=== PATIENT | male | born 1990 | race Caucasian/White ===

== ENCOUNTER 2019-12-18 20:41 | Emergency (ER) | payer OTHER ==
[~2019-12-18] VITALS: Ht 182.9 cm; Wt 65.3 kg
[2019-12-18 21:49] LABS: ABSOLUTE EOSINOPHILS 0.1 thou/uL (0.0-0.7); ABSOLUTE LYMPHOCYTES 2.2 thou/uL (0.8-5.3); ABSOLUTE MONOCYTES 0.5 thou/uL (0.0-1.2); ABSOLUTE NEUTROPHILS 6.5 thou/uL (1.6-8.1); BASOPHILS 0.3 %; EOSINOPHILS 0.6 %; HEMOGLOBIN 15.3 gm/dL (14.0-18.0); LYMPHOCYTES 23.8 %; MCH 30.5 pg (26.0-34.0); MCHC 34.8 g/dL (28.0-37.0); MCV 87.6 fL (80.0-100.0); MPV 7.5 fl. (7.2-11.1); NUCLEATED RBCS 0 /100WBC; PLATELET COUNT* 284 thou/uL (150-400); POLYS 70.3 %; RBC 5.02 mil/uL (4.50-6.00); RDW-CV 12.7 % (10.5-14.5); WBC 9.2 thou/uL (4.0-11.0)
[2019-12-18 21:57] LABS: CREATININE 1.3 mg/dL (0.6-1.3); POTASSIUM 3.6 mmol/L (3.5-5.1)
[2019-12-18 22:01] LABS: ALBUMIN 4.3 g/dL (3.4-5.0); TOTAL BILIRUBIN 0.9 mg/dL (<0.1-1.0)
[2019-12-18 22:25] LABS: URINE BILIRUBIN NEGATIVE (Negative); URINE BLOOD NEGATIVE (Negative); URINE CLARITY CLEAR; URINE COLOR YELLOW; URINE GLUCOSE-RANDOM NEGATIVE (Negative); URINE KETONES NEGATIVE (Negative); URINE LEUKOCYTES-REFLEX NEGATIVE (Negative); URINE NITRITE-REFLEX NEGATIVE (Negative); URINE PROTEIN NEGATIVE (Negative); URINE SPECIFIC GRAVITY 1.025 (1.005-1.030); URINE UROBILINOGEN 0.2 E.U./dl (0.2-1.0)
[2019-12-18 22:40] LABS: AMP/METHAMP Negative (Negative); BARBITURATES Negative (Negative); BENZODIAZEPINES Negative (Negative); COCAINE Negative (Negative); METHADONE Negative (Negative); OPIATES Negative (Negative); PCP Negative (Negative); THC Negative (Negative)
[2019-12-18] MEDS ORDERED: ZOFRAN ODT4 MG DISSOLVE (23:06)
[2019-12-18] MEDS ORDERED: ATIVAN1 M1 PO (23:06)
[2019-12-18 23:19] VITALS: BP 123/71
[2019-12-19] MEDS ORDERED: PROTONIX40 MG PO (17:03)
== END 2019-12-18 23:19 | disposition home or self-care (01) ==
LOC: M.ERS 20:41
PROVIDERS: Emergency Medicine Emergency Medical Services
DX: F41.0 Panic disorder [episodic paroxysmal anxiety] (principal); R11.0 Nausea

== ENCOUNTER 2019-12-19 16:09 | Emergency (ER) | payer OTHER ==
[~2019-12-19] VITALS: Ht 182.9 cm; Wt 65.8 kg
[~2019-12-19 16:09] MED LIST: ATIVAN1 M1 PO; ZOFRAN ODT4 MG DISSOLVE
[2019-12-19] MEDS ORDERED: PROTONIX40 MG PO (17:03)
[2019-12-19 17:09] VITALS: BP 127/88
== END 2019-12-19 17:10 | disposition home or self-care (01) ==
LOC: M.ERS 16:09
DX: R10.9 Unspecified abdominal pain (principal); K92.1 Melena